=== PATIENT | female | born 1985 | race Caucasian/White ===

== ENCOUNTER 2016-11-18 11:00 | Emergency (ER) | payer MEDICAID ==
[~2016-11-18] VITALS: Ht 157.5 cm; Wt 112.9 kg
[2016-11-18 13:22] LABS: BASOPHIL % 0.4 % (0-2); PLATELET COUNT 289 x10^3mcL (130-400)
[2016-11-18 13:39] LABS: CALCIUM 9.1 mg/dL (8.5-10.1); CHLORIDE SERUM 99 mmol/L (98-107); CREATININE SERUM 0.8 mg/dL (0.6-1.0); GFR1 > 60 mL/min; GLUCOSE SERUM 295 mg/dL (74-106); POTASSIUM SERUM 4.3 mmol/L (3.5-5.1); SODIUM SERUM 137 mmol/L (136-145)
[2016-11-18 13:58] LABS: RED CELL DISTRIBUTION WIDTH 14.9 % (11.5-14.5)
[2016-11-18 14:40] VITALS: BP 140/80
== END 2016-11-18 14:40 | disposition home or self-care (01) ==
LOC: ED 11:00
PROVIDERS: Emergency Medicine Emergency Medical Services
DX: H81.10 Benign paroxysmal vertigo, unspecified ear (principal); I10 Essential (primary) hypertension; E11.9 Type 2 diabetes mellitus without complications; Z79.899 Other long term (current) drug therapy; Z88.0 Allergy status to penicillin
CPT/HCPCS: 36415; J8597

== ENCOUNTER 2018-05-08 18:26 | Emergency (ER) | payer MEDICAID ==
[~2018-05-08] VITALS: Ht 160 cm; Wt 121.1 kg
[2018-05-08 18:35] VITALS: Ht 160 cm; Wt 121.1 kg
[2018-05-08 19:12] LABS: BASOPHIL % 0.4 % (0-2); PLATELET COUNT 360 x10^3mcL (130-400)
[2018-05-08 19:14] LABS: RED CELL DISTRIBUTION WIDTH 15.4 % (11.5-14.5)
[2018-05-08 19:23] LABS: CALCIUM 9.4 mg/dL (8.5-10.1); CARBON DIOXIDE 29.4 mmol/L (21-32); CHLORIDE SERUM 96 mmol/L (98-107); CREATININE SERUM 0.8 mg/dL (0.6-1.0); GFR1 > 60 mL/min; GLUCOSE SERUM 255 mg/dL (74-106); POTASSIUM SERUM 3.8 mmol/L (3.5-5.1); SODIUM SERUM 135 mmol/L (136-145)
[2018-05-08 19:27] LABS: ALBUMIN 3.4 g/dL (3.4-5.0); ALKALINE PHOSPHATASE 97 U/L (46-116); ALT/SGPT 54 U/L (14-59); AST/SGOT 32 U/L (15-37); TOTAL PROTEIN, SERUM 7.7 g/dL (6.4-8.2)
[2018-05-08 19:28] LABS: microscopic required? NO
[2018-05-08 19:43] LABS: BILIRUBIN TOTAL 0.2 mg/dL (0.20-1.00)
[2018-05-08 19:53] LABS: urine erythrocyte NEGATIVE (NEGATIVE)
[2018-05-08 20:08] LABS: AMPHETAMINE QUAL UR NONE DETECTED (See below)
[2018-05-08 21:18] VITALS: BP 13/74
== END 2018-05-08 21:18 | disposition home or self-care (01) ==
LOC: ED 18:26
PROVIDERS: Emergency Medicine
DX: R42 Dizziness and giddiness (principal); R11.0 Nausea; R51 Headache; I10 Essential (primary) hypertension; E11.9 Type 2 diabetes mellitus without complications; Z88.0 Allergy status to penicillin
CPT/HCPCS: 36415; 82962; J8597